=== PATIENT | female | born 1980 | race Caucasian/White ===

== ENCOUNTER → 2018-09-29 | Outpatient (CLI) | payer BC ==
--- NOTE | 2018-09-29 13:18 | CT ---
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 TECHNIQUE: Contiguous axial scanning of the chest without IV contrast. Coronal and sagittal reconstru ctions performed. Both inspiratory and expiratory views were obtained. CT DLP: 1368 mGycm Automated exposure control for dose reduction was used. FINDINGS: Heart normal size without pericardial effusion. Aorta normal caliber with conventional arch vessels branching anatomy. No thoracic lymphadenopathy by CT size criteria. Evaluation of the lung shows no consolidation or pleural effusion. Upon expiration, there is development of generalized areas of groundglass and some areas of air tere ing suggesting underlying small airways disease. There is no tracheobronchial collapse upon expiration. Tiny hiatal hernia. Visualized upper abdomen shows borderline hydropic gallbladder 4.0 cm wide, part ially visualized. Bones: Accentuated lower thoracic kyphosis with moderate degenerative disc disease. IMPRESSION: 1. NO TRACHEAL OR BRONCHIAL COLLAPSE UPON EXPIRATION. 2. REGIONS OF AIR TRAPPING BECOME APPARENT ON EXPIRATION. THIS CAN BE SEEN IN THE SETTING OF SMALL A IRWAYS DISEASE. 3. OTHERWISE, NO ACUTE PULMONARY PROCESS. 4. BORDERLINE HYDROPIC GALLBLADDER PARTIALLY VISUALIZED. THIS MAY RELATE TO FASTING STATE. IF RIGHT U PPER QUADRANT PAIN OR CONCERN FOR EARLY ACUTE CHOLECYSTITIS, FOLLOW-UP ULTRASOUND OR HIDA SCAN. 5. TINY HIATAL HERNIA.
== END | disposition home or self-care (01) ==
LOC: RADCTMAIN 12:27
PROVIDERS: ATTEND Internal Medicine Critical Care Medicine
DX: K44.9 Diaphragmatic hernia without obstruction or gangrene (principal); Q32.2 Congenital bronchomalacia
CPT/HCPCS: 71250

== ENCOUNTER 2018-10-06 11:28 | Day surgery (SDC) | payer BC ==
[2018-10-05 12:22] VITALS: BMI 47.8
[~2018-10-06 11:28] MED LIST: ALBUTEROL NEB (CONC) 2.5 MG/0.5 ML INHALATION ONE; LACTATED RINGERS 1,000 ML IV SCH; LIDOCAINE 1% 20 ML VIAL (10MG/ML) FOR IV START INTRADERMA PRN; LIDOCAINE 2% (PF) 20 MG/ML 5 ML VIAL INHALATION ONE; LIDOCAINE VISCOUS 300 MG/15 ML CUP MUCOUS MEM ONE; SODIUM CHLORIDE 0.9% 1,000 ML IV SCH
[2018-10-06 12:10] VITALS: TEMP 98.1
[2018-10-06] MEDS ORDERED: KETAMINE 10 MG/ML 20 ML VIAL ONE (13:29)
[2018-10-06] MEDS ORDERED: PROPOFOL 10 MG/ML 20 ML VIAL IV ONE (13:29)
[2018-10-06] MEDS ORDERED: MIDAZOLAM 2 MG/2 ML VIAL ONE (13:29)
[2018-10-06] MEDS ORDERED: LIDOCAINE 1% INJ 10MG/ML (20 ML MDV) ONE (13:29)
[2018-10-06] MEDS ORDERED: fentaNYL (PF) 50 MCG/ML 2 ML AMP ONE (13:29)
[2018-10-06] MEDS ORDERED: LIDOCAINE 2% INJ 20 MG/ML INTRATRACH ONE (13:55)
[2018-10-06 14:13] VITALS: RESP 18
[2018-10-06 14:42] VITALS: BP 137/78; PULSE 78
[2018-10-06 17:41] LABS: Appearance,BF Cloudy; Nucleated Cells, Body Fluid 80 /uL; RBC, Body Fluid 70 /uL
[2018-10-06 17:47] LABS: Mononuclear WBC,Body Fluid 90 %; Polynuclear WBC,Body Fluid 10 %; Total Cells Counted,Body Fluid 100
--- NOTE | 2018-10-06 20:32 | P.PCN ---
Date of Procedure: 10/06/18 Preoperative Diagnosis: Shortness of breath/cough, along with evidence of air trapping on a high resolution CAT scan of the chest Postoperative Diagnosis: [id number] degree of tracheal bronchomalacia Procedure(s) Performed: Bronchoscopy and the bronchioloalveolar lavage of the lingula Anesthesia: LARRY Surgeon: Marcelino Ravi Estimated Blood Loss (ml): 0 Pathology: other Condition: stable Disposition: same day Operative Findings: This procedure was done under conscious sedation. Anesthetic agents was administered by anesthesia the bedside. After achieving adequate sedation the flexible bronchoscope was inserted to the right nostril. The bronchoscope was advanced in the posterior oropharynx and the larynx was inspected. There was dynamic obstruction of the upper airway specially at the level of the larynx consistent with obstructive sleep apnea. Epiglottis was sharp and was in the midline. The true vocal cords were seen and there were fully functional. No lesions nodules or abnormalities seen. The rest of the laryngeal structures including the vallecula and the arytenoids and the false vocal cords were inspected and there were within normal limits. A total of 2 mL of 1% lidocaine was applied to the vocal cords and following that the bronchoscope was advanced into the upper trachea. The tracheal caliber was small. There was dynamic obstruction which was mild to moderate in severity with a membranous trachea was causing occlusion of the airway probably bites 50% of its normal caliber upon exhalation and coughing. The caliber of the airways were smaller in the lower lobes bilaterally. The inspection was completed. The entire-trachea was noted. Inez was sharp in the midline. Following that the latter mainstem bronchi were inspected. The rest of the inspected it was included the right upper lobe bronchus, right middle lobe bronchus and left lower lobe bronchus. Left upper and left lower bronchi in the lingular segment was inspected. I would say that the bronchi along with secondary and tertiary branches are quite narrowed and easily collapsible with exhalation maneuvers and coughing. Bronchoscope was ultimately wishing to severe segment of the lingula with bronchioloalveolar lavage was done. A total of 60 mL of fluid was infused and 25-30 mL was aspirated without any major difficulties. No endobronchial tumors lesions or abnormalities noted. Bronchoscope was removed and the patient was just with recovery in stable condition. No bedside, occasional bleeding. The patient will see me back in the office to discuss the results.
== END 2018-10-06 14:43 | disposition home or self-care (01) ==
LOC: ORWHC2ENDO 11:28
PROVIDERS: ATTEND Internal Medicine Critical Care Medicine
DX: J98.09 Other diseases of bronchus, not elsewhere classified (principal); J39.8 Other specified diseases of upper respiratory tract; N30.10 Interstitial cystitis (chronic) without hematuria; K21.9 Gastro-esophageal reflux disease without esophagitis; E66.01 Morbid (severe) obesity due to excess calories; Z68.42 Body mass index [BMI] 45.0-49.9, adult; Z79.899 Other long term (current) drug therapy
CPT/HCPCS: 94640; 81025; 89050; 87252; 87070; 87205; 87116; 87102; 87206; 31624; J2001 ×3; J2250; J3010; J2704; 87496; 87498; 87502; 87529; 87634; 87798

== ENCOUNTER → 2018-11-08 | Outpatient (CLI) | payer BC ==
--- NOTE | 2018-11-08 08:33 | US ---
EXAMINATION TYPE: US gallbladder DATE OF EXAM: 11/08/2018 COMPARISON: NONE CLINICAL HISTORY: K81.0 cholecystitis, K44.9 hiatal hernia. pain EXAM MEASUREMENTS: Liver Length: 17.8 cm Gallbladder Wall: 0.2 cm CBD: 0.4 cm Right Kidney: 9.6 x 4.4 x 4.7 cm limited views due to habitus and bowel gas Pancreas: wnl Liver: There is increased echogenicity of the hepatic parenchyma with diminished visualization of th e portal triads most commonly relating to hepatic steatosis and limiting evaluation for underlying he patic masses. Gallbladder: wnl Evidence for sonographic Greenwood's sign: no CBD: wnl Right Kidney: wnl IMPRESSION: Sonographic findings most commonly related to hepatic steatosis, correlate with liver fun ction tests. No sonographic evidence of cholelithiasis or acute cholecystitis.
== END | disposition home or self-care (01) ==
LOC: RADUSWWP 07:40
PROVIDERS: ATTEND Family Medicine
DX: K76.0 Fatty (change of) liver, not elsewhere classified (principal); K44.9 Diaphragmatic hernia without obstruction or gangrene
CPT/HCPCS: 76705

== ENCOUNTER 2021-05-06 15:02 | Emergency (ER) | payer BC ==
[2021-05-06 17:06] VITALS: TEMP 98.6
--- NOTE | 2021-05-06 17:31 | XR ---
EXAMINATION TYPE: XR chest 2V DATE OF EXAM: 05/06/2021 COMPARISON: 09/21/2018 HISTORY: Short of breath TECHNIQUE: 2 views FINDINGS: Heart and mediastinum are normal. Lungs are clear. Diaphragm is normal. Bony thorax is inta ct. IMPRESSION: Normal chest. No adverse change.
[2021-05-06] MEDS ORDERED: SODIUM CHLORIDE 0.9% 500 ML 500 ML IV ONE (17:45)
--- NOTE | 2021-05-06 17:48 | ED ---
General Adult HPI - General Chief complaint: Upper Respiratory Infection Stated complaint: Congestion Time Seen by Provider: 05/06/21 17:35 Source: patient, RN notes reviewed, old records reviewed Mode of arrival: ambulatory Limitations: no limitations - History of Present Illness Initial comments: 41-year-old female with his congestion, loss of taste and smell. Patient tested positive for coronavirus at home today. She's had symptoms for approximately 4 days. She's had sneezing, sore throat, cough. No significant dyspnea. She's had poor appetite. No vomiting or diarrhea. She has had 3 vaccines. - Related Data Home Medications Medication Instructions Recorded Confirmed Albuterol Nebulized [Ventolin 1.25 mg INHALATION QID 10/05/18 10/05/18 Nebulized] buPROPion HCL [buPROPion HCL SR] 150 mg PO DAILY 10/05/18 10/05/18 Allergies Allergy/AdvReac Type Severity Reaction Status Date / Time No Known Allergies Allergy Verified 05/06/21 17:05 Review of Systems ROS Statement: Those systems with pertinent positive or pertinent negative responses have been documented in the HPI. ROS Other: All systems not noted in ROS Statement are negative. Past Medical History Past Medical History: Pneumonia Additional Past Medical History / Comment(s): small airway disease, tracheal malasia, dyspnea, interstital cystitis, stage 2 heart disease. History of Any Multi-Drug Resistant Organisms: None Reported Additional Past Surgical History / Comment(s): ear tubes, lung biopsy, lung washing Past Psychological History: No Psychological Hx Reported Smoking Status: Never smoker Past Alcohol Use History: None Reported Past Drug Use History: None Reported General Exam Limitations: no limitations General appearance: alert, in no apparent distress Head exam: Present: atraumatic, normocephalic Eye exam: Present: normal appearance, PERRL ENT exam: Present: mucous membranes dry Neck exam: Present: normal inspection. Absent: tenderness, meningismus Respiratory exam: Present: normal lung sounds bilaterally. Absent: respiratory distress, wheezes, rales Cardiovascular Exam: Present: regular rate, normal rhythm GI/Abdominal exam: Present: soft. Absent: distended, tenderness, guarding Extremities exam: Present: normal inspection, normal capillary refill. Absent: pedal edema Neurological exam: Present: alert, oriented X3, CN II-XII intact. Absent: motor sensory deficit Skin exam: Present: warm, dry, intact. Absent: cyanosis, diaphoretic Course Vital Signs 05/06/21 16:59 Temperature 98.6 F Pulse Rate 100 Respiratory 19 Rate Blood Pressure 177/105 O2 Sat by Pulse 100 Oximetry Medical Decision Making - Medical Decision Making 41-year-old female who is fully vaccinated and boosted who test positive for coronavirus with typical symptoms. She does not have any dyspnea. She is saturating well on room air. Chest x-ray is clear. She does qualify for monoclonal antibodies and is agreeable with treatment. She is transfused in the emergency department. She's given strict return parameters. She will take vitamin D, zinc, vitamin C. She will return as needed. Disposition Clinical Impression: COVID-19 Disposition: HOME SELF-CARE Condition: Fair Instructions (If sedation given, give patient instructions): Coronavirus Disease 2019 (COVID-19) Additional Instructions: Please return with worsening respiratory complaints. Please take vitamin C, vitamin D, and zinc. Please follow up with her primary care physician. Is patient prescribed a controlled substance at d/c from ED?: No Referrals: Sharad Su DO [Primary Care Provider] - 1-2 days
[2021-05-06] MEDS ORDERED: CASIRIVIMAB (REGN10933) (EUA) 600 MG, IMDEVIMAB (REGN10987) (EUA) 600 MG in SODIUM CHLO... IVPB ONE (18:00)
[2021-05-06] MEDS ORDERED: SODIUM CHLORIDE 0.9% 50 ML IVPB ONE (18:00)
[2021-05-06 19:01] VITALS: BP 139/78; RESP 18
[2021-05-06 20:40] VITALS: PULSE 84
== END 2021-05-06 20:40 | disposition home or self-care (01) ==
LOC: EC 15:02
DX: U07.1 COVID-19 (principal)
CPT/HCPCS: 87635; 71046; 99283; Q0244

== ENCOUNTER → 2022-11-06 | Outpatient (CLI) | payer MEDICARE, OTHER ==
[2022-11-06 15:51] LABS: Basophils # (A) 0.03 X 10*3/uL (0.00-0.10); Basophils % (A) 0.3 %; HCT 37.2 % (37.2-46.3); HGB 12.3 d/dL (12.0-15.0); Lymphocytes # (A) 2.13 X 10*3/uL (0.90-5.00); MCH 27.8 pg (27.0-32.0); MCHC 33.1 d/dL (32.0-37.0); Mean Platelet Volume 9.4 FL (9.5-12.2); Monocytes # (A) 0.59 X 10*3/uL (0.20-1.00); Monocytes % (A) 5.8 %; NRBC Per 100 WBC 0 X 10*3/uL (0.00-0.01); Neutrophils # (A) 7.25 X 10*3/uL (1.80-7.70); Neutrophils % (A) 71.5 %; Platelet Count 355 X 10*3/uL (140-440); RBC 4.43 X 10*6/uL (4.10-5.20); RDW 12.8 % (11.5-14.5); WBC 10.14 X 10*3/uL (4.50-10.00)
[2022-11-06 16:26] LABS: ALT 28 U/L (8-44); AST 28 U/L (13-35); Albumin/Globulin Ratio 1.25 Ratio (1.60-3.17); Alkaline Phosphatase 95 U/L (41-126); BUN/Creat Ratio 12.67 Ratio (12.00-20.00); Blood Urea Nitrogen 7.6 mg/dL (9.0-27.0); Calcium 9.1 mg/dL (8.7-10.3); Chloride 102 mmol/L (96-109); Chol/HDL Ratio 3.23 Ratio; Globulin 3.2 d/dL (1.6-3.3); Glucose 108 mg/dL (70-110); LDL Cholesterol,Calculated 104.2 mg/dL (0.0-131.0); Potassium 4.3 mmol/L (3.5-5.5); Sodium 138 mmol/L (135-145); T4, Free (Free Thyroxine) 0.89 ng/dL (0.80-1.80); Total Bilirubin 0.3 mg/dL (0.3-1.2); Total Protein 7.2 d/dL (6.2-8.2)
== END | disposition home or self-care (01) ==
LOC: LABWHC1 09:52
PROVIDERS: ATTEND Nurse Practitioner Family
DX: Z00.00 Encounter for general adult medical examination without abnormal findings (principal); E06.3 Autoimmune thyroiditis; E23.0 Hypopituitarism
CPT/HCPCS: 36415; 80053; 80061; 82306; 83036; 84439; 84443; 84481; 85025; 86800

== ENCOUNTER → 2023-12-14 | Outpatient (CLI) | payer MEDICARE ==
[2023-12-14 11:05] LABS: African American GFR (CKD) >90 (>60 ml/min/1.73 sqM); Blood Urea Nitrogen 9 mg/dL (7-17); Non-African American GFR(CKD) >90 (>60 ml/min/1.73 sqM)
--- NOTE | 2023-12-14 14:36 | CT ---
EXAMINATION TYPE: CT abdomen pelvis w con DATE OF EXAM: 12/14/2023 COMPARISON: 05/02/2013 HISTORY: 43-year-old female R10.84 right side abdominal pain/swelling, patient has Interstitial cysti tis TECHNIQUE: Contiguous axial scanning of the abdomen and pelvis following administration of 100 ml Iso sarah 300 IV contrast. Coronal and sagittal reconstructions performed. CT DLP: 2476.3 mGycm Automated exposure control for dose reduction was used. FINDINGS: The heart is normal size without pericardial effusion. Some nodular groundglass is present in the visualized right lower lung adjacent to the major fissure, axial image 5. No pleural effusion. Liver enlarged at 19.9 cm with diminished attenuation. No focal lesion. Portal venous system is paten t. No biliary ductal dilatation. Gallbladder, adrenal glands kidneys, spleen, and pancreas within normal limits. No dilated small bowel, free fluid, or free air. No mesenteric or retroperitoneal lymphadenopathy. Normal appendix. Mild stool burden. No pericolonic inflammatory change. Bladder is collapsed. Uterus anteverted. Both ovaries are visualized. No abnormal fluid collection in the pelvis or pelvic lymphadenopathy. Bones: Accentuated lower thoracic kyphosis. IMPRESSION: 1. SOME NODULAR GROUNDGLASS DENSITY IN THE RIGHT LOWER LUNG IS NONSPECIFIC. CONSIDER SMALL INFECTIOUS /INFLAMMATORY FOCI. 2. 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 APPROPRIATE CLINICAL MANAGEMENT IS ADVISED. 3. OTHERWISE, NO ACUTE INFLAMMATORY PROCESS IDENTIFIED IN THE ABDOMEN OR PELVIS TO EXPLAIN THE PATIEN T'S SYMPTOMS.
== END | disposition home or self-care (01) ==
LOC: RADCTMAIN 10:13
PROVIDERS: ATTEND Surgery
DX: J98.4 Other disorders of lung (principal); K76.0 Fatty (change of) liver, not elsewhere classified
CPT/HCPCS: 82565; 84520; 74177; 36415; Q9967

== ENCOUNTER → 2024-02-23 | Outpatient (CLI) | payer MEDICARE ==
--- NOTE | 2024-02-24 11:11 | MM ---
Reason for Exam: Screening (asymptomatic). Baseline mammogram. Patient History: Menarche at age 11. Patient has no children. Perimenopausal. Last menstrual period: 02/21/2024 Risk Values: Purvi 5 year model risk: 0.8%. NCI Lifetime model risk: 11.9%. Prior Study Comparison: Patient's first Mammogram. Tissue Density: The breasts are almost entirely fatty. Findings: Analyzed By CAD. There is no suspicious group of microcalcifications or new suspicious mass in either breast. Overall Assessment: Negative, BI-RAD 1 Management: Screening Mammogram of both breasts in 1 year. . Patient should continue monthly self-breast exams. A clinical breast exam by your physician is recommended on an annual basis. This exam should not preclude additional follow-up of suspicious palpable abnormalities. Note on Purvi scores and lifetime risk: 1. A Purvi score greater than 3% is considered moderate risk. If this is the case, consider specialist referral to assess eligibility for a risk reducing agent. 2. If overall lifetime risk for the development of breast cancer is 20% or higher, the patient may qualify for future screening with alternating mammogram and breast MRI. [facility], , 02/24/2024 11:08 AM. Electronically signed and approved by: Alfredo Fritz M.D. Radiolog[facility]
== END | disposition home or self-care (01) ==
LOC: RADMAMWWP 15:16
PROVIDERS: ATTEND Family Medicine
DX: Z12.31 Encounter for screening mammogram for malignant neoplasm of breast (principal)
CPT/HCPCS: 77063; 77067